=== PATIENT | male | born 1995 | race Caucasian/White ===

== ENCOUNTER 2023-06-23 15:42 | Emergency (ER) | payer OTHER, MEDICAID, SELFPAY ==
[2023-06-23 15:49] VITALS: BP 142/86; PULSE 81; RESP 20; TEMP 37.2; O2SAT 98; BMI 23.7
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
[2023-06-23 16:22] LABS: Appearance Urine Cloudy; Color Urine Yellow; Glucose Urine UA Negative (Negative); Leukocyte Esterase Urine Negative (Negative); Nitrite Urine Negative (Negative); Specific Gravity - Urine 1.015 (1.005-1.025); Urine Blood Negative (Negative); Urine Ketones Negative (Negative); Urine Protein Negative (Neg-Trace)
[2023-06-23 16:24] VITALS: BP 144/77; PULSE 91; RESP 18; TEMP 36.9; O2SAT 98
[2023-06-23 16:34] LABS: Amphetamine Screen Urine Not Detected (Not Detect); Barbiturates, Urine Not Detected (Not Detect); Benzodiazepines Screen Urine Not Detected (Not Detect); Cannabinoid Screen Urine POSITIVE (Not Detect); Cocaine Screen Urine Not Detected (Not Detect); Fentanyl, urine Not Detected (Not Detect); Opiate Screen Urine Not Detected (Not Detect); Phencyclidine Screen Urine Not Detected (Not Detect)
[2023-06-23 16:36] LABS: MANUAL DIFF FLAG NO
[2023-06-23 16:52] LABS: Anion Gap 13 (12-20); Blood Urea Nitrogen 14 mg/dL (9-16); Calcium 9.9 mg/dL (8.4-10.2); Carbon Dioxide 28 mmol/L (22-29); Chloride 103 mmol/L (96-108); Creatinine Clr Calc Pharmacy 125.5; Estimated Glomerular Filt Rate > 60; Ethanol < 10 mg/dL; Glucose Random 104 mg/dL (60-115); Sodium 140 mmol/L (135-145)
[2023-06-23 16:54] LABS: Acetaminophen LAB < 17 mcg/mL (<30); Basophils Absolute Auto 0.1 X10*3/uL (0.0-0.2); Basophils Percent Auto 0.4 % (0-2); Eosinophils Percent Auto 0.4 % (0-4); Hematocrit 41.7 % (42.0-52.0); Hemoglobin 14.2 g/dl (14.0-18.0); Imm Gran Abs Auto 0.05 X10*3/uL (0.00-0.03); Imm Gran Pct Auto 0.4 % (0.0-0.4); Lymphocytes Absolute Auto 2.1 X10*3/uL (1.2-4.9); Lymphocytes Percent Auto 18.7 % (20-40); Mean Corpuscular HGB Conc 34.1 g/dl (31.0-36.0); Monocytes Absolute Auto 0.7 X10*3/uL (0.1-1.2); Monocytes Percent Auto 6.1 % (2-11); Neutrophils Absolute Auto 8.3 x10*3/uL (2.0-8.3); Platelet Count 287 X10*3/uL (160-400); Red Blood Count 4.74 X10*6/uL (4.60-5.80); Red Cell Distribution Width 13.1 % (11.0-16.0); Salicylate < 5.0 mg/dL (15-30); White Blood Count 11.3 X10*3/uL (4.8-10.8)
--- NOTE | 2023-06-23 17:06 | ED_ITS ---
HPI - Psych General Chief Complaint: Psychiatric Symptoms Stated Complaint: needs pysch eval Time Seen by Provider: 06/23/23 16:26 History of Present Illness HPI Narrative: Patient is a 27-year-old male with a history of bipolar disorder was previously on Lexapro. Been compliant with her medications. Denies any fever chills. No cough no congestion upper respiratory symptoms. No diaphoresis. Patient is from home. Patient reported SI without any specific plans. Brother reported he had some questionable redness behavior. Was diagnosed with bipolar. Positive history of cocaine use up to 2 weeks ago. No cocaine since. Positive history of marijuana use. Related Data Home Medications Medication Instructions Recorded Confirmed No Known Home Meds 06/23/23 06/23/23 Allergies Allergy/AdvReac Type Severity Reaction Status Date / Time No Known Allergies Allergy Verified 06/23/23 15:52 Review of Systems Review of Systems: But no fever no chills no diaphoresis No focal weakness Yes all other systems are reviewed and are negative [facility] Past Medical History Attestation statement: The following information was validated with the patient. Social History Social History Alcohol intake: current Alcohol intake frequency: a few times a month Smoked in Last 30 Days: Yes Use of substances other than those prescribed or required for medical reasons: Yes Substance Use Type: Marijuana and Prescription Drugs Advance Directives: No Advance Directives Information Provided: Yes Physical Exam Vital Signs: Vital Signs: Last Vital Signs Temp 98.4 F 06/23/23 16:24 Pulse 91 06/23/23 16:24 Resp 18 06/23/23 16:24 BP 144/77 H 06/23/23 16:24 Pulse Ox 98 06/23/23 16:24 O2 Del Method Room Air 06/23/23 15:49 BMI result Body Mass Index 23.7 Appearance: Alert. Oriented X3. No acute distress. Eyes: Pupils equal, round and reactive to light. ENT: Pharynx normal. Neck: Normal inspection. Neck supple. No lymph nodes noted. No crepitus CVS: Normal heart rate and rhythm. Pulses normal. Normal S1 and S2 Respiratory: No respiratory distress. Breath sounds normal. No Wheezing. No rales Abdomen: Soft and nontender. No rigidity. No distention. good BS x4 Skin: Skin warm and dry. Normal skin color. Normal skin turgor. Extremities: No lower extremity edema. Neurovascular intact to all extremities. No Lacerations. No Rash Neuro: Oriented X 3. No motor deficit. No sensory deficit. Moving all extermities. No slurred speech. Cranial nerve intact. Medical Decision Making Medical Decision Making [facility] Narrative: Patient well appearing neurologically intact. Medically cleared. Awaiting crisis evaluation. U tox ordered baseline labs ordered. In stable condition. Cranial nerve intact. No distress. Differential Diagnosis Differential Diagnoses: The differential diagnosis associated with the presentation includes Bipolar, suicidal homicidal ideation Consult Healthcare Provider Management of the patient was discussed with: Asset Protection Agent Care team Lab Data [facility] Lab Attestation statement: I reviewed the patient's lab results. 06/23/23 16:32 06/23/23 16:32 Labs: Lab Results 06/23/23 06/23/23 06/23/23 Range/Units 16:15 16:15 16:32 WBC 11.3 H (4.8-10.8) X10*3/uL RBC 4.74 (4.60-5.80) X10*6/uL Hgb 14.2 (14.0-18.0) g/dl Hct 41.7 L (42.0-52.0) % MCV 88.0 (80.0-98.0) fL MCH 30.0 (27.0-33.0) pg MCHC 34.1 (31.0-36.0) g/dl RDW 13.1 (11.0-16.0) % Plt Count 287 (160-400) X10*3/uL MPV 10.0 (9.4-12.4) fL Immature Gran % (Auto) 0.4 (0.0-0.4) % Neut % (Auto) 74.0 H (45-73) % Lymph % (Auto) 18.7 L (20-40) % Granite % (Auto) 6.1 (2-11) % Eos % (Auto) 0.4 (0-4) % Baso % (Auto) 0.4 (0-2) % Lymph # (Auto) 2.1 (1.2-4.9) X10*3/uL Granite # (Auto) 0.7 (0.1-1.2) X10*3/uL Eos # (Auto) 0.0 (0.0-0.4) X10*3/uL Baso # (Auto) 0.1 (0.0-0.2) X10*3/uL Abs Immat Gran (auto) 0.05 H (0.00-0.03) X10*3/uL Absolute Neuts (auto) 8.3 (2.0-8.3) x10*3/uL Absolute Nucleated RBC 0.000 (0.0-0.012) X10*3/uL Nucleated RBC % (auto) 0.0 (0.0-0.2) /100WBC Sodium (135-145) mmol/L Potassium (3.3-5.1) mmol/L Chloride (96-108) mmol/L Carbon Dioxide (22-29) mmol/L Anion Gap (12-20) BUN (9-16) mg/dL Creatinine (0.5-1.4) mg/dL Estim Creat Clear Calc Estimated GFR Random Glucose (60-115) mg/dL Calcium (8.4-10.2) mg/dL Urine Color Yellow Urine Appearance Cloudy Urine pH 8.0 (5.0-9.0) Ur Specific [facility] 1.015 (1.005-1.025) Urine Protein Negative (Neg-Trace) mg/dL Urine Glucose (UA) Negative (Negative) mg/dL Urine Ketones Negative (Negative) mg/dL Urine Blood Negative (Negative) Urine Nitrite Negative (Negative) Ur Leukocyte Esterase Negative (Negative) Salicylates (15-30) mg/dL Urine Opiates Screen Not Detected (Not Detect) Urine Fentanyl Screen Not Detected (Not Detect) Acetaminophen (<30) mcg/mL Ur Barbiturates Screen Not Detected (Not Detect) Ur Phencyclidine Scrn Not Detected (Not Detect) Ur Amphetamines Screen Not Detected (Not Detect) U Benzodiazepines Scrn Not Detected (Not Detect) Urine Cocaine Screen Not Detected (Not Detect) U Marijuana (THC) Screen POSITIVE H (Not Detect) Ethyl Alcohol mg/dL 06/23/23 06/23/23 Range/Units 16:32 16:32 WBC (4.8-10.8) X10*3/uL RBC (4.60-5.80) X10*6/uL Hgb (14.0-18.0) g/dl Hct (42.0-52.0) % MCV (80.0-98.0) fL MCH (27.0-33.0) pg MCHC (31.0-36.0) g/dl RDW (11.0-16.0) % Plt Count (160-400) X10*3/uL MPV (9.4-12.4) fL Immature Gran % (Auto) (0.0-0.4) % Neut % (Auto) (45-73) % Lymph % (Auto) (20-40) % Granite % (Auto) (2-11) % Eos % (Auto) (0-4) % Baso % (Auto) (0-2) % Lymph # (Auto) (1.2-4.9) X10*3/uL Granite # (Auto) (0.1-1.2) X10*3/uL Eos # (Auto) (0.0-0.4) X10*3/uL Baso # (Auto) (0.0-0.2) X10*3/uL Abs Immat Gran (auto) (0.00-0.03) X10*3/uL Absolute Neuts (auto) (2.0-8.3) x10*3/uL Absolute Nucleated RBC (0.0-0.012) X10*3/uL Nucleated RBC % (auto) (0.0-0.2) /100WBC Sodium 140 (135-145) mmol/L Potassium 4.0 (3.3-5.1) mmol/L Chloride 103 (96-108) mmol/L Carbon Dioxide 28 (22-29) mmol/L Anion Gap 13 (12-20) BUN 14 (9-16) mg/dL Creatinine 0.95 (0.5-1.4) mg/dL Estim Creat Clear Calc 125.5 Estimated GFR > 60 Random Glucose 104 (60-115) mg/dL Calcium 9.9 (8.4-10.2) mg/dL Urine Color Urine Appearance Urine pH (5.0-9.0) Ur Specific [facility] (1.005-1.025) Urine Protein (Neg-Trace) mg/dL Urine Glucose (UA) (Negative) mg/dL Urine Ketones (Negative) mg/dL Urine Blood (Negative) Urine Nitrite (Negative) Ur Leukocyte Esterase (Negative) Salicylates < 5.0 L (15-30) mg/dL Urine Opiates Screen (Not Detect) Urine Fentanyl Screen (Not Detect) Acetaminophen < 17 (<30) mcg/mL Ur Barbiturates Screen (Not Detect) Ur Phencyclidine Scrn (Not Detect) Ur Amphetamines Screen (Not Detect) U Benzodiazepines Scrn (Not Detect) Urine Cocaine Screen (Not Detect) U Marijuana (THC) Screen (Not Detect) Ethyl Alcohol < 10 mg/dL External Record Review External record reviewed: Inpatient record Chronic Conditions Depression Discharge Plan Discharge Clinical Impression: Bipolar disorder Patient Disposition: Home, Self-Care Instructions: Bipolar Disorder (ED) Additional Instructions: Please follow-up as per care team. Prescriptions: No Action No Known Home Meds Referrals: Physician,None [Primary Care Provider] - 06/25/23 Interventions: [place]-Suicide Risk Severity Scale Last Done: 06/23/23 16:24
--- NOTE | 2023-06-23 17:42 | PC.NURSE ---
pt [facility] ([place]) [phone]
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
--- NOTE | 2023-06-23 17:56 | PC.NURSE ---
CARE team at bedside
== END 2023-06-23 20:16 | disposition home or self-care (01) ==
PROVIDERS: Registered Nurse Emergency; Emergency Provider Emergency Medicine Emergency Medical Services
DX: F31.9 Bipolar disorder, unspecified (principal); R45.851 Suicidal ideations; F14.90 Cocaine use, unspecified, uncomplicated; Z79.899 Other long term (current) drug therapy
CPT/HCPCS: 36415; 80048; 80143; 80179; 80307; 81003; 85025; 99284; S9485

== ENCOUNTER → 2023-07-06 13:34 | Outpatient (BNV) | payer OTHER, SELFPAY | PROVIDERS: Visit Provider Psychiatry & Neurology Psychiatry | DX: F31.9 Bipolar disorder, unspecified (principal) | CPT/HCPCS: 90792; 99213 ==

== ENCOUNTER 2023-07-07 11:41 | Outpatient (REF) | payer MEDICAID, SELFPAY | END 2023-07-07 11:42 | disposition home or self-care (01) | LOC: HO.PHPLNP 11:41 | PROVIDERS: Visit Provider Psychiatry & Neurology Psychiatry | DX: Z13.89 Encounter for screening for other disorder (principal) ==

== ENCOUNTER 2023-07-17 09:00 | Outpatient (RCR) | payer MEDICAID, OTHER, SELFPAY ==
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
[2023-07-07 11:43] VITALS: BP 137/74; PULSE 58; TEMP 37
[2023-07-07 11:55] VITALS: BMI 24.1
--- NOTE | 2023-07-07 14:09 | PC.ADMIT ---
Patient is a 27 year old male who was referred to [facility] by [facility] crisis care team d/t having a manic episode with recent dx of Bipolar I d/o with current episode of depressive SXS. Patient reports feelings of guilt and remorse over things he did during his manic episode. He was reported to have explosive and reckless behaviors during the episode. See Interative Assessment and CAre Team assessment for more information. Patient reports history of using ETOH weekly binges and drinks until he blacks out. Also using Marijauna daily. Reports last use of both ETOH and Marijauna 06/30/23. Also has a history of using Adderall 20x and Cocaine a handful of times. [place] done on 06/23/23 positive for Marijuana. Efrain currently presents with depressed mood and anxious affect. He is alert and oriented x4. Calm and cooperative. He denied SI. I gave him a copy of his safety plan and I reviewed the plan with him. Medications verified with patient and [facility] Respite in [place].
--- NOTE | 2023-07-09 16:34 | HO.PHP ---
Clients case was reviewed and opened today in treatment team.
[2023-07-10 15:19] LABS: Amphetamine Screen Urine Not Detected (Not Detect); Barbiturates, Urine Not Detected (Not Detect); Benzodiazepines Screen Urine Not Detected (Not Detect); Cannabinoid Screen Urine POSITIVE (Not Detect); Cocaine Screen Urine Not Detected (Not Detect); Fentanyl, urine Not Detected (Not Detect); Opiate Screen Urine Not Detected (Not Detect); Phencyclidine Screen Urine Not Detected (Not Detect)
--- NOTE | 2023-07-13 09:34 | P.PNPSP_ITS ---
Subjective Subjective Date of Service: 07/13/23 Reason For Visit: bipolar Interim History: Efrain is seen for follow-up today. He is continuing with the increase of Lamictal, soon to go to 75 mg. He is sleeping well with the Seroquel but feels drowsy and subjectively more depressed. He is also having some suicidal thoughts with no specific plans but was scary for him and considered going to the emergency room. I do not think it is related to the Seroquel but I suggested not taking it for couple of nights to see what happens. Emergency availabilities and circumstances on which to act on getting an evaluation discussed. He is continuing with the program here. Medication Compliance: Yes (er changes were made) Side effects from medications: Yes (Drowsiness, possible increase of depression) Attending Groups: Yes Review of Systems Review of Systems Yes all other systems are reviewed and are negative Mental Status Exam Mental Status Exam Narrative: In today's visit he is alert, oriented and pleasant. Normal speech. Good eye contact. Affect is appropriate and varied. No signs of psychosis. No paranoia or delusions. Cognitively is bright and intact. No active suicidal or homicidal ideations. Judgment is intact Diagnostics Vital Signs (24Hr): BMI result Body Mass Index 24.1 Assessment & Plan Assessment & Plan (1) Bipolar 1 disorder, depressed: Status: Acute Code(s): F31.9 - Bipolar disorder, unspecified Plan Stop Seroquel for few nights to see if it is contributing to the Patient educated on: medication risk/benefits Certification I certify that partial hospital treatment is medically necessary due to the symptoms and problems resulting from the patient's mental illness and the failure to treat the patient at the partial hospital level of care would likely result in the patient requiring inpatient psychiatric care which could not be prevented at a less intensive level of care. Total time managing care of this patient today ____ minutes. Discharge Plan Discharge Attending provider: Marky Vargas Additional Instructions: Efrain has an OP therapist through [facility] in [place], in which his next appointment is July 14, 2023 at 3 PM. Efrain also has a med provider through [facility] in [place]. Next appointment is July 31, 2023 at 2 PM. Medications: New lamotrigine [Lamictal] 100 mg tablet 100 mg PO DAILY Qty: 30 0RF No Action quetiapine 25 mg Tablet 25 mg PO BEDTIME PRN (Reason: Anxiety) Stand Alone Forms: Patient Portal Discharge page
--- NOTE | 2023-07-17 10:31 | HO.PHPPROGNO ---
Subjective Subjective Date of Service: 07/17/23 Reason For Visit: bipolar Interim History: Efrain is seen in follow-up today. He did stop the Seroquel and did not make any difference with his ruminative thinking and he is not sleeping well. He states that when he was in respite hydroxyzine 25 was adequate enough so I will send in a prescription for that to his pharmacy. He continues to increase the Lamictal, currently still at 50 mg. Several questions about antidepressants, other mood stabilizers were discussed. Once he is on higher dose of Lamictal he may consider resuming a low-dose Lexapro which was helpful with his rumination and suicidal preoccupations which she has still with no plans or intent or danger. Medication Compliance: Yes Side effects from medications: No Attending Groups: Yes Review of Systems Review of Systems Yes all other systems are reviewed and are negative Mental Status Exam Mental Status Exam Narrative: In today's visit he is alert, oriented and pleasant. Normal speech. Good eye contact. Affect is appropriate and varied. No signs of psychosis. No paranoia or delusions. Cognitively is bright and intact. No active suicidal or homicidal ideations. Judgment is intact Diagnostics Vital Signs (24Hr): BMI result Body Mass Index 24.1 Assessment & Plan Assessment & Plan (1) Bipolar 1 disorder, depressed: Status: Acute Code(s): F31.9 - Bipolar disorder, unspecified Plan Add hydroxyzine 25 mg q.h.s. p.r.n. Patient educated on: medication risk/benefits Certification I certify that partial hospital treatment is medically necessary due to the symptoms and problems resulting from the patient's mental illness and the failure to treat the patient at the partial hospital level of care would likely result in the patient requiring inpatient psychiatric care which could not be prevented at a less intensive level of care. Total time managing care of this patient today ____ minutes. Discharge Plan Discharge Attending provider: Marky Vargas Additional Instructions: Efrain has an OP therapist through [facility] in [place], in which his next appointment is July 14, 2023 at 3 PM. Efrain also has a med provider through [facility] in [place]. Next appointment is July 31, 2023 at 2 PM. Medications: New lamotrigine [Lamictal] 100 mg tablet 100 mg PO DAILY Qty: 30 0RF hydroxyzine HCl 25 mg tablet 25 mg PO BEDTIME PRN (Reason: sleep) Qty: 30 0RF No Action quetiapine 25 mg Tablet 25 mg PO BEDTIME PRN (Reason: Anxiety) Stand Alone Forms: Patient Portal Discharge page
--- NOTE | 2023-07-17 10:35 | HO.PHP ---
Efrain informed PHP staff that he was not feeling well and he needs to leave for the day. Efrain was uncertain if it had to do with his allergies or medications that was causing him to feel that way. PHP staff assessed for safety, Efrain noted that he has SI with a plan and without intent. Efrain was hesitant when expressing plan or intent but mentioned he will be safe and returning on Thursday. PHP staff will follow up with Efrain at a later point in the day.
--- NOTE | 2023-07-17 13:25 | HO.PHP ---
PHP staff followed up with Efrain, in which Efrain informed the clinician that he has COVID. PHP staff was receptive and stated that she was calling to follow up around safety. Efrain clarified that he has SI with a plan. PHP staff further explored with Efrain what his plan is. Efrain disclosed he does not have a plan of what he is going to specifically do and noted he misunderstood. Efrain disclosed it is only SI he is having and stated he spoke with the PHP provider today about that and was encouraged if he does have a plan or intent that develops to go to the ER. Efrain voiced that he would. PHP staff was receptive. Efrain explored when he will be able to return to the program or what the program protocols look like. PHP staff voiced that she will have the nurse contact him with that information. Efrain was receptive.
--- NOTE | 2023-07-20 13:00 | PC.NURSE ---
I spoke to Efrain this morning. He continues not to feel well, c/o a cough thus will not be coming to the program today. [facility] staff is aware.
--- NOTE | 2023-07-21 09:41 | PC.NURSE ---
I called Efrain this morning and left him a message to call me back. He called back and left me a message stating he is still not feeling well physically however is feeing better. He did not show up to the program as a result. He asked if he could extend his time here since he has been sick and unable to attend the program. [facility] staff is aware and will reach out to patient regarding extension.
--- NOTE | 2023-07-22 09:32 | PC.NURSE ---
Efrain did not show up to the program this morning. I called and spoke to Efrain and he stated he still is not feeling well c/o some chest congestion and fatigue. He also stated he spoke to his therapist and family last night and they asked him to go and get a crisis evaluation as he stated he said something he should not have said, he did not elaborate. He stated he went to [facility] last night. Stated he, felt physically and mentally crappy . He stated the sent him home. I asked him if he was having any thoughts to kill himself and he stated he did not. Denied any plans or intent to kill himself. I told him staff would reach out to him regarding discharge from the program as he has not been here d/t feeling ill. He stated he would like to come back to the program when feeling better or find another program. He stated he would call the program when feeling better to set up an intake appointment with Kisha. I gave him the PHP number to call.
--- NOTE | 2023-07-22 11:26 | HO.PHP ---
I spoke with Efrain . He continues to feel ill. We discussed his discharge and went over his discharge plans and he completed the PHQ 9. He states that he had an intake at [facility] and has an appointment with the prescriber 07/31. He will be assigned a therapist once he attends that appointment. He states that he will call for an appointment to return to [facility] when he is physically feeling better .
--- NOTE | 2023-07-23 11:11 | PC.NURSE ---
Efrain requested help finding a new PCP. I called Efrain and gave him the following information. He has a New PCP appointment with [facility] with Dr Maddie Pedersen at [address] [facility]. August 05, 2023 at 1:30 PM. Office # [phone]. Patient was instructed (Per [facility] waiter/waitress) to call his insurance Company at [phone] prior to the appointment and inform them he has a new PCP with instructions to list the medical library assistant Katina Marie, GONZÁLEZ [phone].
== END 2023-07-17 23:59 | disposition home or self-care (01) ==
LOC: HO.PHPA 09:00
PROVIDERS: Psychiatry & Neurology Psychiatry; Visit Provider Psychiatry & Neurology Psychiatry
DX: F31.9 Bipolar disorder, unspecified (principal); Z79.899 Other long term (current) drug therapy
CPT/HCPCS: 80307; 90791; 90853

== ENCOUNTER → 2023-08-21 12:45 | Outpatient (BNV) | payer OTHER, SELFPAY | PROVIDERS: Visit Provider Psychiatry & Neurology Psychiatry | DX: F31.32 Bipolar disorder, current episode depressed, moderate (principal); F90.9 Attention-deficit hyperactivity disorder, unspecified type; Z86.59 Personal history of other mental and behavioral disorders; F12.11 Cannabis abuse, in remission | CPT/HCPCS: 99213; 99215 ==

== ENCOUNTER 2023-09-02 13:30 | Outpatient (RCR) | payer OTHER, SELFPAY ==
[2023-08-20 12:10] VITALS: BP 132/70; PULSE 68; TEMP 36.8
[2023-08-20 12:13] VITALS: BMI 24.5
--- NOTE | 2023-08-20 12:58 | PC.ADMIT ---
Patient intially started PHP on 07/06/23 however was not able to continue at that time as he was sick with Covid. He was initally referred to [facility] by [facility] crisis care team d/t having a manic episode with recent dx of Bipolar I d/o with current episode of depressive SXS. Patient reports feelings of guilt and remorse over things he did during his manic episode. He was reported to have explosive and reckless behaviors during the episode. See Intergrative Assessment and CAre Team assessment for more information. Patient reports history of using ETOH weekly binges and drinks until he blacks out. Also using Marijauna daily. Reports last use of both ETOH and Marijauna 06/29/23. Also has a history of using Adderall 10x and Cocaine 3-4 times when manic. [place] done on 06/23/23 positive for Marijuana. Patient currently is alert and oriented x4 . Calm and cooperative. He reports he has not used substances since 06/29/23 and feels good about this. He presented with depressed mood and anxious affect. He reports passive SI with a litney of plans however stated he does not have a particular plan or any intent to kill himself. He reports he is able to get himself to the ER if needed and has done this twice in the past few months. He was given a copy of his safety plan if needed and I reviewed this with him. Medications reconciled with patient and patient's pharmacy. He reports he is taking his medications as prescribed. He also stated his current prescriber is unsure if he has Bipolar I or II.
--- NOTE | 2023-08-20 18:18 | HO.PHP ---
Clients case was reviewed and opened today in treatment team.
--- NOTE | 2023-08-20 21:45 | P.HPPSP_ITS ---
HPI Date of Service: 08/20/23 Chief Complaint: bipolar,anxiety,depression Sources of Information: patient interviewed, chart reviewed and crisis/core team assessment reviewed HPI Narrative: Patient is 28 year old male, previously admitted to [facility] last month but was unable to complete program after bethanie COVID. He is now returning for treatment of depression, anxiety related to stressors. He has a history of Bipolar Disorder after having experienced his first manic episode this summer following heavy cannabis use reportedly got completely addicted to it to manage the stress of moving to [place] away from family supports and subsequent relationship deterioration. He had moved to [place] with his girlfriend in the Spring, they began to experience a lot of conflicts living together which ultimately lead to him leaving the state and according to patient proceeded to drive 17,000 miles over the course of the summer (including several trips to [place] and back). 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 He also started drinking more heavily and reports bouts of driving under the influence, and other risk-taking behaviors which looking back feels was quasi-suicidal , sometimes nodding off when driving or waking up on the wrong side of the road and not feeling alarmed by his behavior (adding that he is usually a very cautious/careful person). He also described feelings of invincibility and impaired insight during this time. Remarkably he says he did not cause any accidents, or get a DUI), but was generally prone to making poor decisions during this time. Aside from high impulsivity and poor insight and judgment, he also describes experiencing elevated mood, high mood lability, irritability, low appetite, increase in energy and less need for sleep. He went as long as three days without sleeping. He is currently on Lamictal 150 mg daily, Wellbutrin XL 150 mg daily and olanzapine 2.5 mg qhs for sleep. He was recently trialed on Seroquel for sleep, but found that it caused him too much grogginess during the day and was switched to Zyprexa. He feels the medication has helped him level off, started within the past 6 weeks although feels he had already started to come down from the kevin after spending 5 days at respite in early June when he was unable to drunk or use, and says he has remained sober since then. In the past he was treated with Lexapro, Ritalin for depression and ADHD and also had been previously started on Lamictal for possibly what was felt to be some hypomanic symptoms but this was initially discontinued due to rash. He is currently dealing with a lot of anxiety and depression, including SI, which he attributes to the fall-out consequences of his manic behavior this summer - citing job loss, debt and relationship loss as the primary reasons he is feeling suicidal, states there is a lot of shame and guilt about these predicaments, and also feeling stuck. 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. He has taken time off from there, with their approval, but also is concerned that they may not take him back as he had just started there. He denies any intention or plan to hurt himself but indicates the suicidal thoughts are constant and unrelenting, really now more than any other time in my life and adds that he has never really experienced any signifiant SI or suicidal behavior or SIB in the past. Past Psychiatric History: Outpatient/virtual psychotherapy Has met once with new psychiatric provider Dr. Stern at [facility] Therapist Lyric Stallworth at [facility] since 06/2023 No prior IP hospitalizations, no prior PHP admission aside from starting here last month. No detox or substance abuse treatment history Respite x 1 Denies any overt suicide attempts or self-injurous behaviors, but relays risk- taking behaviors (bordering suicidal behavior) when manic this summer [facility] Medical History (Updated 08/20/23 @ 23:24 by Jonna Spencer MD) Cannabis abuse with cannabis-induced disorder History of kevin Substance induced mood disorder Scoliosis Family History: Biological mother depression/possible bipolar disorder and alcoholism, now sober 37 years Other (adoptive) mother with addiction and MH issues, from drug overdose around 2006 Paternal uncle with schizophrenia Half brother with autism disorder Biological father with possible autism Late maternal grandmother with many IP hospitalizations, suicide attempts Social History: Efrain had 2 mother's growing up and very close family person was the donor. He has a brother from the same donor in mother. His other mother left when he was 12 and she of heroin overdose. He denies any history of physical or sexual abuse but some emotional abuse. His biological father was never in the picture but he knew of his identity. 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 Currently he is living with his mother since his return. Primary supports biological mom and brother Graduated from [employer] in 2019 Substance History: EtOH with binging pattern, hx of drinking and driving behaviors but no DUIs. Denies hx of physiological dependence, DTs . Last use Jun 2023 Cannabis use since college, socially most days but limited amount. Began smoking heavily (daily, all day long) this Spring. Last use May 2023 Cocaine, illicit stimulant use (Adderall) and nicotine use, all limited to manic episode this summer. No further use. No heroin, opioids, No IVDA Spent 5 days at respite 05/2023, been sober from all substances since. Trauma History: reports enduring emotional abuse, relational trauma in childhood Diagnostics Vital Signs (24Hr): Vital Signs - 24 hr 08/20/23 12:10 Temperature 98.3 F Pulse Rate 68 Blood Pressure 132/70 BMI result Body Mass Index 24.5 Meds/Allergies Meds Home Medications Medication Instructions Recorded Confirmed Type bupropion HCl 150 mg 24 hr tablet, 150 mg PO DAILY 08/20/23 08/20/23 History extended release (Wellbutrin XL) lamotrigine 150 mg tablet 150 mg PO DAILY 08/20/23 08/20/23 History (Lamictal) olanzapine 2.5 mg tablet 2.5 mg PO BEDTIME 08/20/23 08/20/23 History Allergies Allergies Allergy/AdvReac Type Severity Reaction Status Date / Time No Known Allergies Allergy Verified 06/23/23 15:52 Mental Status Exam Mental Status Exam Patient Appearance: Well Grooomed Patient Orientation: Person, Place, Time and Situation Level of Consciousness: Awake and Alert Patient Behavior: Appropriate and Cooperative Mood Description: Depressed and Blunted Affect Description: Constricted Patient Cognition Impaired: No Ability to Follow Directions: Excellent Speech Pattern: Clear and Appropriate Memory Description: Intact and Episodic Impaired Hallucinations: None Delusions: Not Present Thought Process: Intact, Rumination and Linear Thought Content: positive for Circumstantial and positive for Suicidal Ideation Judgement and Insight: Fair-good adequate Assessment & Plan Assessment & Plan (1) Bipolar affect, depressed: Status: Diagnosis Status: Acute Qualifiers: Current episode severity: moderate Qualified Code(s): F31.32 - Bipolar disorder, current episode depressed, moderate Code(s): F31.30 - Bipolar disorder, current episode depressed, mild or moderate severity, unspecified (2) History of kevin: Status: Diagnosis (r/t Substance-induced Mood dis; r/o Bipolar 1 Dis) Status: Acute Code(s): Z86.59 - Personal history of other mental and behavioral disorders (3) Cannabis use disorder, moderate, in early remission: Status: Acute Code(s): F12.21 - Cannabis dependence, in remission Plan history of bipolar 2 disorder in the past, with recent manic episode felt to be more consistent with an acute substance-induced kevin which seems to tightly correlate to cannabis and alcohol binging just prior to and leading into at the onset of the manic episode Patient educated on: diagnosis and medication risk/benefits Informed Consent: understands Reason for continued partial hosp. stay Substantial Risk for: harm to self, rapid decompensation and med/psych decompensation Certification I certify that partial hospital treatment is medically necessary due to the symptoms and problems resulting from the patient's mental illness and the failure to treat the patient at the partial hospital level of care would likely result in the patient requiring inpatient psychiatric care which could not be prevented at a less intensive level of care. Time Spent With Patient Time: Total time managing care of this patient today _60___ minutes.
[2023-08-24 14:16] LABS: Amphetamine Screen Urine Not Detected (Not Detect); Barbiturates, Urine Not Detected (Not Detect); Benzodiazepines Screen Urine Not Detected (Not Detect); Cannabinoid Screen Urine Not Detected (Not Detect); Cocaine Screen Urine Not Detected (Not Detect); Fentanyl, urine Not Detected (Not Detect); Opiate Screen Urine Not Detected (Not Detect); Phencyclidine Screen Urine Not Detected (Not Detect)
--- NOTE | 2023-08-26 00:56 | P.PNPSP_ITS ---
Subjective Subjective Date of Service: 08/25/23 Reason For Visit: bipolar,anxiety,depression Interim History: Patient seen for follow-up. Mood pretty stable . No fluctuations in mood although he notes having some difficulty engaging in deeper thought, tends to stay superficial which is not new for him. In fact has had long standing issues with more reflective thinking, feels he gets bogged down with overthinking or just has a short attention span for things that require a higher level of mindfulness. He is feeling really stuck with a lot of negative feelings and thoughts stemming from consequences he is left dealing with in the wake of the manic period. He wants to feel better and move on but just is not sure how to. 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 He recognizes he is likely being too hard on himself, but nonetheless is stuck in feeling embarrassed for himself. Emotionally he is not feeling the depression, in fact he describes feeling the depression is stemming more so from a deep cognitive dissonance rather than feeling overtly emotional. ASRS v1 was given, findings reviewed. Part A scored 5 (endorsing frequent inattentive/impulsive symptoms equally 25/). Medication Compliance: Yes Side effects from medications: No Mental Status Exam Mental Status Exam Narrative: Patient is alert and oriented. In no acute distress Patient Appearance: Well Groomed Patient Behavior: Appropriate and Cooperative Mood Description: Depressed and Blunted Affect Description: Constricted, slightly irritable Patient Cognition Impaired: No Ability to Follow Directions: Excellent Speech Pattern: Clear and Appropriate Memory Description: Intact and Episodic Impaired Hallucinations: None Delusions: Not Present Thought Process: Rumination Thought Content: positive for Circumstantial and positive for Suicidal Ideation Judgement and Insight: Fair-good Diagnostics Vital Signs (24Hr): BMI result Body Mass Index 24.5 Labs Labs: Laboratory Results - last 48 hr 08/24/23 11:35 Urine Opiates Screen Not Detected Urine Fentanyl Screen Not Detected Ur Barbiturates Screen Not Detected Ur Phencyclidine Scrn Not Detected Ur Amphetamines Screen Not Detected U Benzodiazepines Scrn Not Detected Urine Cocaine Screen Not Detected U Marijuana (THC) Screen Not Detected Assessment & Plan Assessment & Plan (1) Bipolar affect, depressed: Qualifiers: Current episode severity: moderate Qualified Code(s): F31.32 - Bipolar disorder, current episode depressed, moderate Status: Acute Code(s): F31.30 - Bipolar disorder, current episode depressed, mild or moderate severity, unspecified (2) History of kevin: Status: Acute Code(s): Z86.59 - Personal history of other mental and behavioral disorders (3) Cannabis use disorder, moderate, in early remission: Status: Acute Code(s): F12.21 - Cannabis dependence, in remission Plan titrate lamotrigine to 200 mg in split dose (continue 150 mg in AM and start 50 mg in PM) will start Vyvanse 10 mg qd in lieu of WB XL if insurance will fill generic. Plan to trial low dose for now to clarify effects of WB (benefits vs drawbacks), as I am not convinced that increasing dose of WB may in fact further exacberate probs rather than imrpove depressive sx, also addressing some of the problems associated with ADHD in terms of dysregulated attention (circuity of negative thought patterns, hyperfocus) trouble with problem solving, low grade chronic irritability, low frustration tolerance w multi-step tasks or delayed reward. Pt aware of risk for kevin and we discussed monitoring for s/s of activation, agrees to utilize olanzapine for sleep. Alternatively other options include switching to SR formulation, addition of modafinil, or non-stimulant medications such as guanfacine. Also lithium may be considered if WB felt to be contributing to issues or pt cont w ongoing depressive sx, passive SI. Patient educated on: diagnosis, medication risk/benefits, substance abuse and therapeutic strategies Informed Consent: understands Reason for contiued partial hosp. stay Substantial Risk for: rapid decompensation and med/psych decompensation Certification I certify that partial hospital treatment is medically necessary due to the symptoms and problems resulting from the patient's mental illness and the failure to treat the patient at the partial hospital level of care would likely result in the patient requiring inpatient psychiatric care which could not be prevented at a less intensive level of care. Total time managing care of this patient today _30___ minutes. Discharge Plan Discharge Attending provider: Jonna Spencer Additional Instructions: Efrain has a med provider, Edmond Stern, through [facility], in which his next appointment is September 07, 2023 at 3:30 PM. Medications: New lisdexamfetamine 10 mg capsule 10 mg PO QAM Qty: 10 0RF Rx Instructions: Partial Fill upon patient request. Continued dextroamphetamine-amphetamine [Adderall XR] 5 mg capsule,extended release 24hr 5 mg PO QAM 10 Days Qty: 10 0RF Rx Instructions: Partial Fill upon patient request. No Action lamotrigine [Lamictal] 150 mg Tablet 150 mg PO DAILY olanzapine 2.5 mg Tablet 2.5 mg PO BEDTIME bupropion HCl [Wellbutrin XL] 150 mg Tablet Extended Release 24 Hr 150 mg PO DAILY Stand Alone Forms: Patient Portal Discharge page
--- NOTE | 2023-08-28 14:49 | HO.PHP ---
[facility] staff member followed up with Efrain after group 3 due to him stating he has a plan. PHP staff assessed his plan. Efrain noted that he feels they may just be thoughts. PHP staff explored what those thoughts look like. Efrain took some time to report the plan but eventually noted it is with a gun. PHP staff assessed if he has access to a gun. Efrain disclosed he does not and mentioned he sold his gun. PHP staff was receptive. Efrain stated he has no means to his plan. Efrain reported that they are simply thoughts with no intent. Efrain voiced he will be safe and has plans over the weekend. Efrain disclosed that he will be returning to program on Thursday. PHP staff was receptive.
--- NOTE | 2023-08-28 15:02 | HO.PHPPROGNO ---
Subjective Subjective Date of Service: 08/28/23 Reason For Visit: bipolar,anxiety,depression Interim History: Patient seen for follow-up today. No acute issues or concerns Efrain initially mentions a twitch near his right eye he has been noticing coming and going for a couple of weeks now, like somewhere between 2-4 weeks now. (I observed this on one occasion today, very subtle). He is feeling more calm, less grouchy since stopping Wellbutrin 2 days ago. Feels less apathetic. Today he is a little more anxious but still feels this is better; perhaps is less focused, he does feel the Wellbutrin helped with focus. Feels more distractible. He was unable to fill Vyvanse as requires a PA, he likely only tolerate a very dose of stimulant, so we discussed just trialing Add XR 5, as he has been prescribed stimulants for a couple of months 1.5 yrs ago, back in Spring 2021, which predates his manic episode by over a year (His previous prescriber rxed mostly methylphenidate family which made him feel a bit off and shakey, he did not have this experience on IR Adderall, but only tried this a couple of times, on long-acting amphetamine-family rx) We reviewed risk benefit of treating vs non-treatment of adhd. He understand we are not initiating regular dosing, but to use as needed and will avoid if he has not had a full night sleep the night before. He agrees to increase dose of ZYprxa 2.5 to 5 mg if needed for sleep. Likely his tolerance of the Adderall XR will be limited by sub-therapeutic mood stabilization at this point, I suspect he will better tolerate an adequate dose of stimulant once the lamotrigine is further titrated. Also advised to avoid taking q2-3 day dosing of Wellbutrin on the same day as stimulant, as we taper off the Wellbutrin in the next 1-2 weeks. Will continue Lamictal 200 mg/d for 2 weeks then increase to 300 mg daily. He denies any current thoughts of harming himself or others. Denies any issues with kevin or psychosis. Medication Compliance: Yes Side effects from medications: No Attending Groups: Yes Review of Systems Acute medical concerns: No Mental Status Exam Mental Status Exam Narrative: Alert, oriented, in no acute distress. Patient Appearance: Well Grooomed Patient Behavior: Appropriate and Cooperative Mood Description: Calm and Anxious Affect Description: Appropriate Patient Cognition Impaired: No Ability to Follow Directions: Excellent Speech Pattern: Clear, Appropriate, Spontaneous Speech and Coherent Memory Description: Intact Hallucinations: None Thought Process: Intact, Rumination and Linear Thought Content: positive for Goal Oriented Abnormal Motor Activity Signs and Symptoms: Tic (noted twitch x1 R lower eyelid ) Judgement: Good Diagnostics Vital Signs (24Hr): BMI result Body Mass Index 24.5 Assessment & Plan Assessment & Plan (1) Bipolar affect, depressed: Qualifiers: Current episode severity: moderate Qualified Code(s): F31.32 - Bipolar disorder, current episode depressed, moderate Status: Acute Code(s): F31.30 - Bipolar disorder, current episode depressed, mild or moderate severity, unspecified (2) History of kevin: Status: Acute Code(s): Z86.59 - Personal history of other mental and behavioral disorders (3) Cannabis use disorder, moderate, in early remission: Status: Acute Code(s): F12.21 - Cannabis dependence, in remission Assessment and Plan: hx of SIMD Plan continue Lamcital 200 mg (split 150/50 for a week) holding Wellbutrin XL 150 mg (may take q 2-3 days until Gaspar therapeutic) trial Adderall XR 5 mg qam prn (will also observe whether this affects twitch/tic R eye, which has been occurring already for past 2-4 weeks ?WB) continue olanzapine 2.5 mg qhs (may bump up to 5 mg if needed for sleep) Patient educated on: diagnosis and medication risk/benefits Informed Consent: understands Reason for contiued partial hosp. stay Substantial Risk for: harm to self, rapid decompensation and med/psych decompensation Certification I certify that partial hospital treatment is medically necessary due to the symptoms and problems resulting from the patient's mental illness and the failure to treat the patient at the partial hospital level of care would likely result in the patient requiring inpatient psychiatric care which could not be prevented at a less intensive level of care. Total time managing care of this patient today _30___ minutes. Discharge Plan Discharge Attending provider: Jonna Spencer Additional Instructions: Efrain has a med provider, Edmond Stern, through [facility], in which his next appointment is September 07, 2023 at 3:30 PM. Medications: New lisdexamfetamine 10 mg capsule 10 mg PO QAM Qty: 10 0RF Rx Instructions: Partial Fill upon patient request. Continued dextroamphetamine-amphetamine [Adderall XR] 5 mg capsule,extended release 24hr 5 mg PO QAM 10 Days Qty: 10 0RF Rx Instructions: Partial Fill upon patient request. No Action lamotrigine [Lamictal] 150 mg Tablet 150 mg PO DAILY olanzapine 2.5 mg Tablet 2.5 mg PO BEDTIME bupropion HCl [Wellbutrin XL] 150 mg Tablet Extended Release 24 Hr 150 mg PO DAILY Stand Alone Forms: Patient Portal Discharge page
--- NOTE | 2023-09-01 14:41 | HO.PHPPROGNO ---
Subjective Subjective Date of Service: 09/01/23 Reason For Visit: bipolar,anxiety,depression Interim History: Patient seen today for discharge. No new issues or concerns. He has tolerated discontinuation of Wellbutrin. So far notes less irritability. Mood is stable. Denies any suicidal ideation. Sleep, appetite are stable. 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 He agrees to discuss further with his psych provider. Patient discussed feeling his issues now mostly stem from having a lot of problems (financial, legal, employment) on his plate, not sure about his work status, and feeling generally overwhelmed with not knowing how to make a plan to tackle and resolve some of these problems. Organziation and attentional issues are long standing, and likely he would benefit from treatment. I offered him the number for [facility] in [place] if he is interested in undergoing testing for ADHD. He can also discuss plan wit his provider, who is also welcome to reach out to me if he wants to discuss further. Patient denies any thoughts of harming self or others. He denies any thoughts or urges of using alcohol or substances. Medication Compliance: Yes Side effects from medications: No Attending Groups: Yes Review of Systems Acute medical concerns: No Mental Status Exam Mental Status Exam Narrative: Alert, oriented, in no acute distress. Patient Appearance: Well Groomed Patient Behavior: Appropriate and Cooperative Mood Description: Calm and Anxious Affect Description: Appropriate Patient Cognition Impaired: No Ability to Follow Directions: Excellent Speech Pattern: Clear, Appropriate, Spontaneous Speech and Coherent Memory Description: Intact Hallucinations: None Thought Process: Intact Thought Content: positive for Goal Oriented Judgement: Good Diagnostics Vital Signs (24Hr): BMI result Body Mass Index 24.5 Assessment & Plan Assessment & Plan (1) Bipolar affect, depressed: Qualifiers: Current episode severity: moderate Qualified Code(s): F31.32 - Bipolar disorder, current episode depressed, moderate Status: Acute Code(s): F31.30 - Bipolar disorder, current episode depressed, mild or moderate severity, unspecified Assessment and Plan: Bipolar II Disorder, hx of SIMD/manic episode (2) Attention-deficit hyperactivity disorder, unspecified type: Qualifiers: Attention deficit-hyperactivity disorder type: unspecified Qualified Code(s): F90.9 - Attention-deficit hyperactivity disorder, unspecified type Status: Acute Code(s): F90.9 - Attention-deficit hyperactivity disorder, unspecified type (3) History of kevin: Status: Acute Code(s): Z86.59 - Personal history of other mental and behavioral disorders (4) Nondependent cannabis abuse in remission: Status: Acute Code(s): F12.11 - Cannabis abuse, in remission Plan Discharge PHP Contine titration on Lamcital, will contiue at 225 mg daily for now Pt was unable to start on stimulant medicaiton for ADHD due to PA requirement WIll follow up with outpatient provider Continue with therapy Patient educated on: diagnosis, medication risk/benefits, substance abuse and therapeutic strategies Informed Consent: understands Reason for contiued partial hosp. stay Substantial Risk for: stable for discharge Certification I certify that partial hospital treatment is medically necessary due to the symptoms and problems resulting from the patient's mental illness and the failure to treat the patient at the partial hospital level of care would likely result in the patient requiring inpatient psychiatric care which could not be prevented at a less intensive level of care. Total time managing care of this patient today __45__ minutes. Discharge Plan Discharge Attending provider: Jonna Spencer Additional Instructions: Efrain has a med provider, Edmond Stern, through [facility], in which his next appointment is September 07, 2023 at 3:30 PM. Medications: Continued dextroamphetamine-amphetamine [Adderall XR] 5 mg capsule,extended release 24hr 5 mg PO QAM 10 Days Qty: 10 0RF Rx Instructions: Partial Fill upon patient request. Changed lamotrigine [Lamictal] 150 mg Tablet 150 mg PO BID 14 Days Qty: 28 0RF olanzapine 2.5 mg Tablet 2.5 mg PO BEDTIME PRN (Reason: Insomnia) 14 Days Qty: 14 0RF Discontinued bupropion HCl [Wellbutrin XL] 150 mg Tablet Extended Release 24 Hr 150 mg PO DAILY Stand Alone Forms: Patient Portal Discharge page Patient Education: Bipolar Disorder (DC), Cannabis Abuse (DC)
== END 2023-09-02 23:59 | disposition home or self-care (01) ==
LOC: HO.PHPA 13:30
PROVIDERS: Visit Provider Psychiatry & Neurology Psychiatry
DX: F31.32 Bipolar disorder, current episode depressed, moderate (principal); F12.21 Cannabis dependence, in remission; Z86.59 Personal history of other mental and behavioral disorders
CPT/HCPCS: 80307; 90791; 90853